=== PATIENT | male | born 1985 | race Asian ===

== ENCOUNTER 2017-04-12 12:24 | Observation (INO) | payer SELFPAY ==
[~2017-04-12] VITALS: Ht 172.7 cm; Wt 74.8 kg
[2017-04-12] MEDS ORDERED: KETOROLAC TROMETHAMINE 30 MG/ML VIAL IV STA (13:05)
[2017-04-12] MEDS ORDERED: XYLOCAINE 1%/SOD BICARB 20 ML VIAL INFIL STA ×2 (13:05→17:06)
[2017-04-12] MEDS ORDERED: AMPICILLIN/SULBACTAM SOD INJ 3,000 MG in SODIUM CHLORIDE 0.9% 100ML 100 ML IV STA (13:05)
[2017-04-12] MEDS ORDERED: SODIUM CHLORIDE 0.9% 1000ML 1,000 ML IV STA (13:05)
--- NOTE | 2017-04-12 13:14 | EMERGENCY ROOM VISIT NOTE ---
History First contact with patient: 12:56 Chief Complaint: HAND PAIN/INJURY Stated Complaint: L HAND INJURY History of Present Illness The patient is a 31 year old male who presents to the Emergency Room via private vehicle with complaints of "left hand injury". The patient states that beginning 2 days ago he noticed redness on the back of his left hand at the base of his left thumb. He states that then pain progressed, and now it is swollen to a point where he cannot bend or even move his left thumb. He notes pain rated as an 8/10 in this region. He notes that he is right-handed. He denies any trauma to the area, seeing anything bite his hand or injecting anything into the area. 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 He does not think he has had a tetanus shot in the past. He also feels warm, chills and notes excessive warmth of his left arm. Review of Systems A complete 10-point Review of Systems was discussed with the patient, with pertinent positives and negatives listed in the History of Present Illness. All remaining Review of Systems questions can be considered negative unless otherwise specified. Past Medical/Surgical History Medical Problems: (1) Cellulitis of left hand No pertinent at this time. Family History No pertinent. Social History Smoking Status: Never Smoker Patient lives locally, and performs [employer]. Current/Historical Medications No Active Prescriptions or Reported Meds Physical Exam Vital Signs Date Time Temp Pulse Resp B/P (MAP) Pulse Ox O2 Delivery O2 Flow Rate FiO2 04/12/17 17:50 87 18 132/75 99 Room Air 04/12/17 16:00 84 18 127/78 100 Room Air 04/12/17 14:12 90 18 130/76 99 Room Air 04/12/17 12:30 36.8 113 18 141/90 97 Room Air Physical Exam VITAL SIGNS - Vital signs and nursing notes were reviewed. He is afebrile, hypertensive, tachycardic at a rate of 113 bpm, and is saturating well on room air at 97%. GENERAL -31-year-old male appearing his stated age who is in no acute distress. Communicates well with provider and answers questions appropriately. SKIN - the left hand at the base of the left thumb reveals erythema that extends into the wrist, as well as into the thumb that is now severely edematous. There is an area at the flexor region at the base of the left first digit that appears to be coming to a head as if it is an abscess. There is no purulent drainage at this time. The hand and arm are excessively warm to the touch as compared to the right. HEAD - NC/AT.. NECK - Neck with FROM. Supple to palpation. No lymphadenopathy noted. No nuchal rigidity. No meningismus or signs of encephalitis. LUNGS - Chest wall symmetric without accessory muscle use, intercostals retractions, or central cyanosis. Normal vesicular breath sounds CTA B/L. No wheezes, rales, or rhonchi appreciated. CARDIAC - RRR with S1/S2. No murmur, rubs, or gallops appreciated. EXTREMITIES - No clubbing or peripheral cyanosis. No pretibial edema present. Skin changes as noted above. He is unable to flex extend or even move the left first digit of the hand. He is neurovascularly intact in this region. +5/5 strength noted in UE/LE bilaterally.Finger held in slight flexion at rest. Fusiform swelling. Tenderness along the flexor tendon sheath. Pain with passive extension of the digit. Medical Decision & Procedures ER Provider Diagnostic Interpretation: LEFT HAND MIN 3 VIEWS ROUTINE CLINICAL HISTORY: Left hand edema, erythema, warmth. No injury. COMPARISON: None. DISCUSSION: No fractures or dislocations are visualized. There are no erosive or destructive changes. There is diffuse soft tissue swelling. No foreign bodies are visualized. IMPRESSION: Diffuse soft tissue swelling. No bony abnormalities identified. Electronically signed by: Cesar Nguyen M.D. 04/12/2017 1:54 PM Dictated Date/Time: 04/12/2017 1:53 PM LEFT HAND ULTRASOUND CLINICAL HISTORY: Left hand edema and erythema. Concern for FTS with abscess. COMPARISON STUDY: Left hand 04/12/2017. FINDINGS: Increased echogenicity within the subcutaneous fat of the left hand with mild edema. No loculated fluid collections to suggest an abscess. No foreign bodies identified by sonographic technique. IMPRESSION: Increased echogenicity within the subcutaneous fat of the left hand with mild subcutaneous edema suggestive of a cellulitis. No loculated fluid collections to suggest an abscess. Electronically signed by: Carmelo Bhat M.D. 04/12/2017 4:39 PM Dictated Date/Time: 04/12/2017 4:38 PM Laboratory Results 04/12/17 13:20 Red Blood Count 5.25, Mean Corpuscular Volume 94.7, Mean Corpuscular Hemoglobin 29.7, Mean Corpuscular Hemoglobin Concent 31.4, Mean Platelet Volume 9.4, Neutrophils (%) (Auto) 85.0, Lymphocytes (%) (Auto) 8.3, Monocytes (%) (Auto) 5.1, Eosinophils (%) (Auto) 0.6, Basophils (%) (Auto) 0.1, Neutrophils # (Auto) 19.24, Lymphocytes # (Auto) 1.89, Monocytes # (Auto) 1.16, Eosinophils # (Auto) 0.13, Basophils # (Auto) 0.02 04/12/17 13:20 Test 04/12/17 13:20 04/12/17 13:27 04/12/17 15:21 White Blood Count 22.64 K/uL (4.8-10.8) Red Blood Count 5.25 M/uL (4.7-6.1) Hemoglobin 15.6 g/dL (14.0-18.0) Hematocrit 49.7 % (42-52) Mean Corpuscular Volume 94.7 fL (80-100) Mean Corpuscular Hemoglobin 29.7 pg (25-34) Mean Corpuscular Hemoglobin Concent 31.4 g/dl (32-36) Platelet Count 315 K/uL (130-400) Mean Platelet Volume 9.4 fL (7.4-10.4) Neutrophils (%) (Auto) 85.0 % Lymphocytes (%) (Auto) 8.3 % Monocytes (%) (Auto) 5.1 % Eosinophils (%) (Auto) 0.6 % Basophils (%) (Auto) 0.1 % Neutrophils # (Auto) 19.24 K/uL (1.4-6.5) Lymphocytes # (Auto) 1.89 K/uL (1.2-3.4) Monocytes # (Auto) 1.16 K/uL (0.11-0.59) Eosinophils # (Auto) 0.13 K/uL (0-0.5) Basophils # (Auto) 0.02 K/uL (0-0.2) RDW Standard Deviation 44.7 fL (36.4-46.3) RDW Coefficient of Variation 12.9 % (11.5-14.5) Immature Granulocyte % (Auto) 0.9 % Immature Granulocyte # (Auto) 0.20 K/uL (0.00-0.02) Erythrocyte Sedimentation Rate 45 mm/hr (0-14) Anion Gap 5.0 mmol/L (3-11) Est Creatinine Clear Calc Drug Dose 117.6 ml/min Estimated GFR () 132.7 Estimated GFR (Non- 114.5 BUN/Creatinine Ratio 16.6 (10-20) Calcium Level 9.3 mg/dl (8.5-10.1) C-Reactive Protein 3.53 mg/dl (0-0.29) Bedside Lactic Acid Venous 1.52 mmol/L (0.90-1.70) Lactic Acid Level 1.0 mmol/L (0.4-2.0) Medications Administered Medications (Trade) Dose Ordered Sig/Katey Route Start Time Stop Time Status Last Admin Dose Admin Lidocaine HCl (Buffered Lidocaine 1% Inj) 20 ml NOW STAT INFIL 04/12/17 13:05 04/12/17 13:09 DC 04/12/17 13:34 20 ML Sodium Chloride 1,000 ml @ 999 mls/hr Q1H1M STAT IV 04/12/17 13:05 04/12/17 14:05 DC 04/12/17 13:34 999 MLS/HR Ampicillin Sodium/ Sulbactam Sodium 3000 mg/Sodium Chloride 108 ml @ 200 mls/hr NOW STAT IV 04/12/17 13:05 04/12/17 13:37 DC 04/12/17 13:34 200 MLS/HR Ketorolac Tromethamine (Toradol Inj) 30 mg NOW STAT IV 04/12/17 13:05 04/12/17 13:09 DC 04/12/17 13:33 30 MG Diphtheria/ Pertussis/Tetanus Vacc (Adacel Inj) 0.5 ml ONCE ONCE IM. 04/12/17 15:15 04/12/17 15:16 DC 04/12/17 18:09 0.5 ML Vancomycin HCl 1000 mg/Sodium Chloride 270 ml @ 125 mls/hr NOW STAT IV 04/12/17 15:02 04/12/17 17:11 DC 04/12/17 15:37 125 MLS/HR Ondansetron HCl (Zofran Inj) 4 mg Q6H PRN IV 04/12/17 17:30 05/12/17 17:29 04/12/17 18:24 4 MG Dextrose/Sodium Chloride 1,000 ml @ 75 mls/hr [id number] IV 04/12/17 17:21 05/12/17 17:20 04/12/17 19:52 75 MLS/HR Morphine Sulfate (MoRPHine SULFATE INJ) 1mg for pain 1-5 2mg ... Q2H PRN IV 04/12/17 17:30 04/26/17 17:29 04/12/17 18:24 2 MG Medical Decision Patient was seen and evaluated as above. After obtaining a thorough history and physical examination IV access was initiated, and the above workup was performed. He presents to us today with diffuse swelling of the left hand, particularly around that the base of the left first digit. He denies any trauma. Although he is afebrile, he is tachycardic. Blood cultures and lactic acid will be drawn as well as baseline labs. He'll be empirically given Unasyn and vancomycin. On examination there is at baseline finger held in slight flexion at rest. Fusiform swelling. Tenderness along the flexor tendon sheath. Pain with passive extension of the digit. There is concern for flexor tenosynovitis of the left first digit. This is consistent with Kanavel's signs. X-ray was obtained to rule out foreign body secondary to his occupation. This was negative. Ultrasound reveals no fluid collection. He was given his tetanus shot. CBC reveals leukocytosis of 22.64. ESR high at 45. C-reactive protein high at 3.53. Potassium low at 3.4. I consulted orthopedics, who will evaluate, and admit the patient. Please refer to further documentation regarding his stay. In evaluation treatment this patient following differential diagnoses were entertained: Flexor tenosynovitis, abscess, osteomyelitis, among others. Impression Primary Impression: Cellulitis of left hand Additional Impression: Hypokalemia Departure Information Dispostion Admitted as an inpatient Condition GOOD Prescriptions No Active Prescriptions or Reported Meds Referrals No Doctor, Assigned (PCP) Patient Instructions [facility] Problem Qualifiers
--- NOTE | 2017-04-12 13:55 | DIAGNOSTIC IMAGING REPORT ---
LEFT HAND MIN 3 VIEWS ROUTINE CLINICAL HISTORY: Left hand edema, erythema, warmth. No injury. COMPARISON: None. DISCUSSION: No fractures or dislocations are visualized. There are no erosive or destructive changes. There is diffuse soft tissue swelling. No foreign bodies are visualized. IMPRESSION: Diffuse soft tissue swelling. No bony abnormalities identified. Electronically signed by: Cesar Nguyen M.D. 04/12/2017 1:54 PM Dictated Date/Time: 04/12/2017 1:53 PM
[2017-04-12 14:00] LABS: BASO % 0.1 %; BASO ABS # 0.02 K/uL (0-0.2); COMPLETE YES; EOS % 0.6 %; HEMATOCRIT 49.7 % (42-52); IG% 0.9 %; LYMPH % 8.3 %; LYMPH ABS # 1.89 K/uL (1.2-3.4); MEAN CELL VOLUME 94.7 fL (80-100); MEAN CORPUSCULAR HEMOGLOBIN 29.7 pg (25-34); MEAN CORPUSCULAR HGB CONC 31.4 g/dl (32-36); MEAN PLATELET VOLUME 9.4 fL (7.4-10.4); MONO % 5.1 %; PLATELET COUNT 315 K/uL (130-400); RED BLOOD COUNT 5.25 M/uL (4.7-6.1); WHITE BLOOD COUNT 22.64 K/uL (4.8-10.8)
[2017-04-12 14:29] LABS: BUN/CREATININE RATIO 16.6 (10-20); CALCIUM 9.3 mg/dl (8.5-10.1); CREATININE 0.88 mg/dl (0.60-1.40); POTASSIUM 3.4 mmol/L (3.5-5.1)
[2017-04-12] MEDS ORDERED: VANCOMYCIN INJ 1,000 MG in SODIUM CHLORIDE 0.9% 250ML 250 ML IV STA (15:02)
[2017-04-12] MEDS ORDERED: DIPHTHERIA/TETANUS/PERTUSSIS 0.5 ML SYR/VIAL IM. ONE (15:15)
--- NOTE | 2017-04-12 16:40 | DIAGNOSTIC IMAGING REPORT ---
LEFT HAND ULTRASOUND CLINICAL HISTORY: Left hand edema and erythema. Concern for FTS with abscess. COMPARISON STUDY: Left hand 04/12/2017. FINDINGS: Increased echogenicity within the subcutaneous fat of the left hand with mild edema. No loculated fluid collections to suggest an abscess. No foreign bodies identified by sonographic technique. IMPRESSION: Increased echogenicity within the subcutaneous fat of the left hand with mild subcutaneous edema suggestive of a cellulitis. No loculated fluid collections to suggest an abscess. Electronically signed by: Carmelo Bhat M.D. 04/12/2017 4:39 PM Dictated Date/Time: 04/12/2017 4:38 PM
--- NOTE | 2017-04-12 16:44 | History and Physical ---
History & Physical Date Apr 12, 2017. Chief Complaint Left hand pain and swelling History of Present Illness The patient is a 31 year old male with complaints of left hand pain and swelling for the past 2 days that has become progressively worse with assoc chills, sweats and essentially no mobility of the thumb. 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 Pt denies CP, SOB, Nausea, vomiting, diarrhea, parasthenia or drainage from the affected area. NPO since 9:00 AM today Past Medical/Surgical History none Additional History Hepatic Disease: No Endocrine Disorder: No Kidney Disease: No Hypertension: No Heart Disease: No Bleeding Tendencies: No Infectious Diseases: No Allergies Coded Allergies: Shrimp (Unverified Allergy, Unknown, itchy, 04/12/17) Home Medications No Active Prescriptions or Reported Meds Physical Examination Skin: + pertinent finding (Significant edema on dorsal and volar surface of left hand with purulent area noted over volar base of 1st MCP. Small amt of clear/bloody drainge. ) Eyes: normal inspection, EOMI Head: normocephalic Respiratory/Chest: lungs clear, normal breath sounds, no respiratory distress Cardiovascular: regular rate, rhythm, no murmur Abdomen / GI: normal bowel sounds, non tender Extremities: + pertinent finding (essentially completely limted ROM of Left thumb at MCP joint. Able to resist flex and extension at IP w/o referred pain to MCP. Probable flexor tendon involvement. Unable to make complete fist. Appropriate ROM of all other digits. N/V intact. See skin for remaining details.) Neurologic/Psych: no motor/sensory deficits, alert, oriented x 3 Diagnosis Left thumb/hand abscess/cellulitis ASA Classification: ASA Class I Plan of Treatment Patient is currently being evaluated by Dr. Rod Marie
[2017-04-12] MEDS ORDERED: LIDOCAINE HCL 1% 20 ML VIAL ONE (17:05)
[2017-04-12] MEDS ORDERED: ONDANSETRON INJ 2 MG/ML 2 ML VIAL IV PRN (17:30)
[2017-04-12] MEDS ORDERED: OXYCODONE/ACETAMINOPHEN 5-325 TAB PO PRN (17:30)
[2017-04-12] MEDS: MoRPHine SULFATE 2 MG/ML CARP IV PRN (18:24)
[2017-04-12] MEDS ORDERED: IV FLUIDS COMPLETED PRN (18:30)
[2017-04-12 19:17] LABS: C-REACTIVE PROTEIN 3.53 mg/dl (0-0.29)
--- NOTE | 2017-04-12 19:29 | Pharmacy Progress Note ---
Pharmacy Abx Initial Consult Date of Service Apr 12, 2017. Pharmacy Dosing Scope Date of Consult: 04/12/17 Consultation requested by: Farida Sanchez PA-C Pharmacy is consulted to initiate vancomycin IV dosing therapy, order appropriate labs and adjust drug dose/frequency. Subjective The patient is a 31 year old male admitted on . Objective Height (Feet): 5 Height (Inches): 8.00 Weight (Kilograms): 74.800 Vital Signs (Past 12Hrs) Vital Signs Past 12 Hours Date Time Temp Pulse Resp B/P (MAP) Pulse Ox O2 Delivery O2 Flow Rate FiO2 04/12/17 18:57 81 19 137/79 99 Room Air 04/12/17 17:50 87 18 132/75 99 Room Air 04/12/17 16:00 84 18 127/78 100 Room Air 04/12/17 14:12 90 18 130/76 99 Room Air 04/12/17 12:30 36.8 113 18 141/90 97 Room Air Lab Results (24Hrs) Laboratory Tests (24 Hours) Test 04/12/17 13:20 04/12/17 15:21 C-Reactive Protein 3.53 mg/dl (0-0.29) H White Blood Count 22.64 K/uL (4.8-10.8) H Red Blood Count 5.25 M/uL (4.7-6.1) Hemoglobin 15.6 g/dL (14.0-18.0) Hematocrit 49.7 % (42-52) Mean Corpuscular Volume 94.7 fL (80-100) Mean Corpuscular Hemoglobin 29.7 pg (25-34) Mean Corpuscular Hemoglobin Concent 31.4 g/dl (32-36) L Platelet Count 315 K/uL (130-400) Mean Platelet Volume 9.4 fL (7.4-10.4) Neutrophils (%) (Auto) 85.0 % Lymphocytes (%) (Auto) 8.3 % Monocytes (%) (Auto) 5.1 % Eosinophils (%) (Auto) 0.6 % Basophils (%) (Auto) 0.1 % Neutrophils # (Auto) 19.24 K/uL (1.4-6.5) H Lymphocytes # (Auto) 1.89 K/uL (1.2-3.4) Monocytes # (Auto) 1.16 K/uL (0.11-0.59) H Eosinophils # (Auto) 0.13 K/uL (0-0.5) Basophils # (Auto) 0.02 K/uL (0-0.2) Lactic Acid Level 1.0 mmol/L (0.4-2.0) Micro Results Date/Time Source Procedure Growth Status 04/12/17 13:30 Blood Blood Culture Pending Received 04/12/17 13:20 Blood Blood Culture Pending Received 04/12/17 17:45 Abscess Finger , Left 1st Gram Stain - Final Resulted 04/12/17 17:45 Abscess Finger , Left 1st Wound Culture Pending Resulted 04/12/17 17:45 Drainage-Deep Thumb , Left Gram Stain Pending Received 04/12/17 17:45 Drainage-Deep Thumb , Left Wound Culture Pending Received Risk Factors for Resistance * no risk factors Assessment & Plan Assessment 31 year old male with no appreciable medical history admitted with left hand cellulitis around the thumb. 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 He can no longer move his thumb. Patient underwent and I&D this afternoon with Dr Marie and Gram stain shows few Gram positive organisms. Plan vancomycin for treatment of left hand cellulitis Vancomycin IV * Loading dose: 1000 mg (13.3 mg/kg) * Maintenance dose: 1250 mg IV (16.7 mg/kg) every 8 hours (population pharmacokinetics suggest a half-life of 7.7 hours) * Goal trough level for cellulitis : 10 to 15 mcg/mL * Trough ordered for 04/14/17 prior to 0600 dose Pharmacy will continue to follow and will adjust dose/frequency as necessary. Thank you.
[2017-04-12 19:30] VITALS: BP 146/91; PULSE 102; TEMP 37.8; O2SAT 97; Ht 172.7 cm; Wt 74.8 kg
--- NOTE | 2017-04-12 19:41 | ORTHOPEDIC CONSULTATION ---
DATE OF CONSULTATION: 04/12/2017 The patient has a painful left thumb which began spontaneously 2 days ago. A coutierier was utilized. He thinks he might have been bitten, but this is just a guess and has no certainty around it. Has progressive pain, swelling and redness involving the left thumb. Further information regarding the patient's history and medications, etc. can be gathered from MILAGRO Ochoa's history and physical from today as well. On exam of the thumb, there is swelling of the thenar area with redness mainly on the volar aspect of the thenar eminence. There is a little bit of redness over the dorsum of the proximal second ray. There is no streaking. He has tattoos on his arm. Sensation is intact. Capillary refill is less than 2 seconds. There is a small area of whitish discoloration towards between the proximal and next proximal thumb MP crease located more towards the ulnar side of the thumb and the radial side. There is no notable drainage. This area is the most exquisitely tender, here and around the base of the volar aspect of the MP joint. The thenar eminence appears to be relatively soft. There is no significant firmness within the first webspace. The MCP, CMC and IP joints are nontender and not swollen on the dorsal aspects. He can extend and flex the thumb at the IP joint without significant pain. He can pinch to the index finger. He has good passive movement of the thumb IP joint without significant pain. There is no tenderness over the distal phalanx. There is some tenderness over the proximal phalanx, but most exquisite tenderness is located over the MP joint. There is a small open wound on the ulnar side at the aforementioned location, but no active drainage. His otherwise median, radial and ulnar motor and sensory functions are intact. Ultrasound of the hand shows soft tissue swelling, but no evidence of abscess. X-ray of the hand shows no fracture or osteomyelitis. There is no dislocation. There is no subcutaneous emphysema or foreign body. Positive soft tissue swelling. PROCEDURE: Verbal consent was obtained. He denies allergy to iodine. Lobster is okay, just small shrimp. The hand was prepped with Betadine. A sterile field was created. A forearm tourniquet was applied at 225 mmHg for about 5 minutes. Prior to that, superficial radial nerve and median nerve block were done with approximately 8 mL of 1% lidocaine plain. An additional 4 mL of 1% plain lidocaine was injected around the MP joint subcutaneous tissues for local anesthesia. The tourniquet was inflated. An oblique incision was made somewhat paralleling the course of the prior small break in the skin. This went from proximal ulnar to distal radial between the 2 thumb flexion creases. I incised only the skin in order to protect the superficial neurovascular structures. I then used a blunt forcep to dissect and in both the volar radial and dorsal ulnar direction 1-2 mL pockets of latosha purulence was noted. A culture was obtained; then was thoroughly irrigated with 100 mL of sterile saline. Some loculated pus was removed. This appeared to be superficial in the subcutaneous tissues and did not appear to go deep. I squeezed into the thenar eminence of the palm and first webspace and could express no purulence. A moistened gauze sponge was packed into the wound and a bulky sterile hand dressing was applied. IMPRESSION: Left hand cellulitis with subcutaneous abscess involving the volar aspect of the metacarpophalangeal joint area of the left thumb. PLAN: We will go ahead and open up the small area which looks like there may be an evolving abscess. This is the most exquisite area of tenderness. Upon doing so, we did identify two small areas of purulence which were expressed, irrigation and packing was performed. The patient will be admitted to the hospital. His white blood cell count is approximately 20,000. This will be rechecked in the morning. He has been given Zosyn and vancomycin in the ER and we will continue Ancef pending culture ID. There is a possibility that this could be MRSA. I do not think that this is a deep space infection, does not appear to have evidence of flexor tenosynovitis or septic arthritis. He will be admitted to the hospital. We will make him n.p.o. just in case he does not improve. We will check him in the morning to see how his hand is doing. He will continue on IV antibiotics and will go ahead and keep the hand elevated. He will have pain medication as well. He does not need DVT prophylaxis.
[2017-04-12] MEDS ORDERED: VANCOMYCIN CONSULT ACTIVE PRN (19:45)
[2017-04-12] MEDS: D5W AND 1/2NSS 1,000 ML IV SCH (19:52)
[2017-04-12] MEDS: DOCUSATE SODIUM 100 MG CAP PO SCH (21:00)
[2017-04-12] MEDS: VANCOMYCIN INJ 1,250 MG in SODIUM CHLORIDE 0.9% 250ML 250 ML IV SCH (21:54)
[2017-04-12] MEDS ORDERED: CEFAZOLIN IV 2,000 MG in DEXTROSE 5% 50ML 50 ML IV SCH (22:00)
[2017-04-12 22:50] VITALS: BP 136/87; PULSE 113; TEMP 37.5; O2SAT 99
[2017-04-13] MEDS: VANCOMYCIN INJ 1,250 MG in SODIUM CHLORIDE 0.9% 250ML 250 ML IV SCH ×3 (05:33→21:32)
[2017-04-13] MEDS: D5W AND 1/2NSS 1,000 ML IV SCH ×2 (05:33→20:26)
[2017-04-13 07:09] VITALS: BP 110/68; PULSE 83; TEMP 37.5; O2SAT 96
[2017-04-13 07:12] LABS: MEAN CELL VOLUME 92.4 fL (80-100); MEAN CORPUSCULAR HEMOGLOBIN 31.2 pg (25-34); MEAN CORPUSCULAR HGB CONC 33.8 g/dl (32-36); MEAN PLATELET VOLUME 9.3 fL (7.4-10.4); PLATELET COUNT 249 K/uL (130-400); RED BLOOD COUNT 4.33 M/uL (4.7-6.1); WHITE BLOOD COUNT 19.46 K/uL (4.8-10.8)
[2017-04-13 07:48] LABS: CREATININE 0.83 mg/dl (0.60-1.40)
[2017-04-13 08:00] VITALS: O2SAT 96
[2017-04-13] MEDS: DOCUSATE SODIUM 100 MG CAP PO SCH ×2 (08:48→20:27)
--- NOTE | 2017-04-13 09:24 | Progress Note ---
Orthopedic SOAP Note Subjective Date of Service: Apr 13, 2017. Reports: feeling well (reports significant improving regarding pain, swelling, and stiffness in the left hand. states that he has painless active motion and is pleased with progress), pain controlled w PO medications, Denies: complaints , chest pain, SOB, nausea / vomiting, light headedness, calf pain, using [employer] Problem List Medical Problems: (1) Hypokalemia Status: Acute Objective calves soft nontender, N/V intact, capillary refill less than 2 sec., dressing C /D/I, A&O x3, toes mobile pain is able to actively move his thumb and index finger on the left hand without pain, states doing this last evening would have created significant pain and that is not the case at this point. also has painless motion at the wrist, which was also affected. I keep his dressing/packing in place until evaluated by Dr. Marie to determine if packing can be removed. Date Time Temp Pulse Resp B/P (MAP) Pulse Ox O2 Delivery O2 Flow Rate FiO2 04/13/17 07:09 37.5 83 18 110/68 (82) 96 Room Air 04/12/17 23:35 Room Air 04/12/17 22:50 37.5 113 20 136/87 (103) 99 Room Air 04/12/17 19:30 37.8 102 16 146/91 97 Room Air 04/12/17 18:57 81 19 137/79 99 Room Air 04/12/17 17:50 87 18 132/75 99 Room Air 04/12/17 16:00 84 18 127/78 100 Room Air 04/12/17 14:12 90 18 130/76 99 Room Air 04/12/17 12:30 36.8 113 18 141/90 97 Room Air Laboratory Results 24 Hours: Test 04/12/17 13:20 04/13/17 06:37 White Blood Count 22.64 K/uL Red Blood Count 5.25 M/uL Hemoglobin 15.6 g/dL 13.5 g/dL Hematocrit 49.7 % 40.0 % Mean Corpuscular Volume 94.7 fL Mean Corpuscular Hemoglobin 29.7 pg Mean Corpuscular Hemoglobin Concent 31.4 g/dl Platelet Count 315 K/uL Mean Platelet Volume 9.4 fL Neutrophils (%) (Auto) 85.0 % Lymphocytes (%) (Auto) 8.3 % Monocytes (%) (Auto) 5.1 % Eosinophils (%) (Auto) 0.6 % Basophils (%) (Auto) 0.1 % Neutrophils # (Auto) 19.24 K/uL Lymphocytes # (Auto) 1.89 K/uL Monocytes # (Auto) 1.16 K/uL Eosinophils # (Auto) 0.13 K/uL Basophils # (Auto) 0.02 K/uL Assessment Left hand abscess/cellulitis Plan continue to monitor accordingly pain control with prescribed medications ice/elevate left UE continue IV ABX slight decrease in white count cultures pending up ad bairon, ambulates in room will be evaluated by Dr. Marie today and determine if packing can be removed no other questions or concerns pleased with his progress over the past 12 hours further questions please notify [facility]
[2017-04-13] MEDS: MoRPHine SULFATE 2 MG/ML CARP IV PRN (12:23)
--- NOTE | 2017-04-13 12:48 | PROGRESS NOTE ---
DATE: 04/13/2017 He reports improvement. Less pain. No numbness or tingling. He is afebrile. His vital signs are stable. White count is diminished to 19,000 today. Cultures are growing out Staph aureus. Blood cultures negative to date. The dressing is removed along with packing. He still has erythema essentially over the same areas previously, volar aspect of the proximal thumb, thenar eminence, mainly volarly, slightly dorsally. He has intact sensation and capillary refill to the thumb. There is no purulent drainage. He can actively flex his IP and MP joint without much difficulty. There is not pain with passive extension of the IP joint. He has slight soreness along the volar aspect of the proximal phalanx and some soreness in the first webspace. He can flex his fingers about 50% limited by swelling. There is no tenderness of the carpal tunnel, palm of the hand, hypothenar eminence or metacarpophalangeal joints. The interphalangeal, metacarpophalangeal and carpometacarpal joints of the left thumb are benign appearing dorsally. There is no pain in the wrist. IMPRESSION: Subcutaneous abscess of the left thumb. PLAN: He is improved overall. I have some concern about a deep space or webspace infection. There is a fair amount of persistent swelling in that area. Overall, things have improved. He does have some residual tenderness, but things again are much improved. I do not think that he has any evidence of spread of the infection around the hand into the carpal tunnel or any of the joints of the wrist or thumb. He does not have clinical evidence of flexor tenosynovitis. We will give him a diet to eat today and make him n.p.o. after midnight. He will continue on vancomycin. We will follow up on the cultures. The hand is redressed and packed. Continue elevation. Obtain an MRI to further evaluate. He is aware of the plan. There is a possible need for surgery tomorrow if he does have a deep space abscess.
[2017-04-13 15:00] VITALS: BP 128/84; PULSE 100; TEMP 36.9; O2SAT 97
[2017-04-13] MEDS ORDERED: GADAVIST IV PRN (16:30)
--- NOTE | 2017-04-13 16:48 | DIAGNOSTIC IMAGING REPORT ---
MRI OF THE LEFT HAND COMBO CLINICAL HISTORY: Hand infection. COMPARISON STUDY: Radiographs of left hand and ultrasound of the left hand dated 04/12/2017. TECHNIQUE: MRI of the left hand is performed using various T1 and T2-weighted sequences in the axial, sagittal, and coronal planes. Contrast-enhanced sequences are acquired from the IV administration of 7 cc of Gadavist. The examination is degraded by motion artifact. FINDINGS: Normal marrow signal intensity is preserved throughout the visualized bony structures. There is no evidence of marrow replacement process. The joint spaces of the hand appear preserved. A cutaneous defect is suggested between the first and second fingers, possibly representing wound/laceration. There is surrounding soft tissue edema and patchy enhancement. Milder soft tissue edema is seen throughout the remainder of the hand suggesting cellulitis. No organized fluid collection is seen to indicate abscess. The visualized flexor and extensor tendons appear intact. The regional musculature is normal in bulk and signal intensity. IMPRESSION: 1. No bony abnormality is seen in the left hand. 2. A cutaneous defect is suggested between the first and second fingers, likely representing a wound/laceration. Clinical correlation will be required. 3. Milder diffuse soft tissue swelling throughout the remainder of the hand suggests cellulitis. There is no organized fluid collection seen to indicate abscess. Electronically signed by: Antwan Pan M.D. 04/13/2017 4:47 PM Dictated Date/Time: 04/13/2017 4:39 PM
[2017-04-13 22:50] VITALS: BP 126/88; PULSE 90; TEMP 37.1; O2SAT 98
[2017-04-14] MEDS ORDERED: VANCOMYCIN TROUGH SCH (05:30)
[2017-04-14] MEDS: VANCOMYCIN INJ 1,250 MG in SODIUM CHLORIDE 0.9% 250ML 250 ML IV SCH (05:43)
[2017-04-14 06:04] LABS: BASO % 0.4 %; BASO ABS # 0.05 K/uL (0-0.2); COMPLETE YES; EOS % 2.7 %; IG% 1.5 %; LYMPH % 15.7 %; LYMPH ABS # 1.89 K/uL (1.2-3.4); MEAN CELL VOLUME 92.9 fL (80-100); MEAN CORPUSCULAR HEMOGLOBIN 31.4 pg (25-34); MEAN CORPUSCULAR HGB CONC 33.8 g/dl (32-36); MEAN PLATELET VOLUME 9.1 fL (7.4-10.4); MONO % 9.1 %; NEUT % 70.6 %; PLATELET COUNT 260 K/uL (130-400); RED BLOOD COUNT 4.52 M/uL (4.7-6.1); WHITE BLOOD COUNT 12.01 K/uL (4.8-10.8)
[2017-04-14 06:38] LABS: CREATININE 0.76 mg/dl (0.60-1.40)
[2017-04-14 07:00] VITALS: BP 119/75; PULSE 74; TEMP 36.7; O2SAT 97
[2017-04-14] MEDS ORDERED: HYDR-5688 PO (07:53)
[2017-04-14] MEDS ORDERED: CLC100 PO (07:53)
[2017-04-14] MEDS ORDERED: SULF800T23 PO (07:53)
--- NOTE | 2017-04-14 08:07 | Discharge Instructions ---
Discharge Instructions Date of Service Apr 14, 2017. Admission Reason for Admission: Cellulitis Of Left Hand Discharge Discharge Diagnosis / Problem: Cellulitis of left hand Discharge Goals Goal(s): Decrease discomfort, Improve function, Increase independence Activity Recommendations Activity Limitations: per Instructions/Follow-up section Shower/Bathe: no limitations Weightbearing Status: Left non-weightbearing (left hand) . Instructions / Follow-Up Instructions / Follow-Up DIET: * Resume previous diet. MEDICATIONS: * Please take your prescriptions as instructed at your pre-op appointment and/ or see medication discharge instructions listed above. * If concerns develop, call your physician's office at . SPECIAL CARE INSTRUCTIONS: * Ice to left hand as needed for pain and swelling * Elevate left hand as needed for pain and swelling. * Keep dressing clean, dry, intact. Keep covered at all times. Okay to remove dressings and shower. Also dressings twice daily for soaking left hand and Betadine/water mixture. * Soak hand in Betadine and water mixture twice daily. Redress after soaking. * Move her fingers frequently to prevent stiffness. Okay to remove wrist. No pushing pulling or lifting left hand. * Report to emergency room with any increased pain and swelling, drainage, fevers, or chills. * Your surgical extremity may be discolored due to prepping agents used on the skin. A bluish-green tint is a normal variant and should not cause alarm. Call your doctor at [phone] if: * Temperature above 101 degrees * Pain not relieved by pain medicine ordered * There is increased drainage or redness from any incision * You have any unanswered questions, problems or concerns. FOLLOW UP VISIT: * If not already scheduled, please call the office at to schedule a follow-up appointment. * Follow up at [facility] on Monday04/18/17 at 04/18/17 at 1:00 p.m. Current Hospital Diet Patient's current hospital diet: Regular Diet Discharge Diet Recommended Diet: Regular Diet Pending Studies Studies pending at discharge: no Medical Emergencies . Who to Call and When: Medical Emergencies: If at any time you feel your situation is an emergency, please call 911 immediately. . Non-Emergent Contact Non-Emergency issues call your: Surgeon Call Non-Emergent contact if: temperature is above 101, your pain is not controlled, your pain is worsening, your pain is concerning you, wound has increased drainage, wound has increased redness, wound has increased pain, you have any medication questions . "Provider Documentation" section prepared by Farida Sanchez. . VTE Core Measure Inpt VTE Proph given/why not?: Treatment not indicated [place] Drug Monitoring Program Search Results: patient reviewed within database, no issues identified
--- NOTE | 2017-04-14 08:12 | Orthopedic Progress Note ---
Orthopedic Progress Note Date of Service Apr 14, 2017. Subjective Reports: feeling well, pain controlled w PO medications, Denies: complaints, chest pain, SOB, nausea / vomiting, light headedness, calf pain Additional Notes: States feeling much better Objective calves soft nontender, N/V intact, capillary refill less than 2 sec., incision C /D/I, A&O x3 Dressing with mild bloody drainage. No active draining from wound. Less swelling of his left hand today. Still some dorsal tenderness palpation. No purulence able to be expressed from wound today. Tolerates range of motion of left thumb IP joint, MCP joint, and left wrist. Distal vascular is intact. Range of motion improved and left thumb and hand. Date Time Temp Pulse Resp B/P (MAP) Pulse Ox O2 Delivery O2 Flow Rate FiO2 04/14/17 07:00 36.7 74 16 119/75 (90) 97 Room Air 04/13/17 22:50 37.1 90 16 126/88 (101) 98 Room Air 04/13/17 19:20 Room Air 04/13/17 17:00 Room Air 04/13/17 15:00 36.9 100 20 128/84 (99) 97 Room Air Laboratory Results 24 Hours: Test 04/14/17 05:41 White Blood Count 12.01 K/uL Red Blood Count 4.52 M/uL Hemoglobin 14.2 g/dL Hematocrit 42.0 % Mean Corpuscular Volume 92.9 fL Mean Corpuscular Hemoglobin 31.4 pg Mean Corpuscular Hemoglobin Concent 33.8 g/dl Platelet Count 260 K/uL Mean Platelet Volume 9.1 fL Neutrophils (%) (Auto) 70.6 % Lymphocytes (%) (Auto) 15.7 % Monocytes (%) (Auto) 9.1 % Eosinophils (%) (Auto) 2.7 % Basophils (%) (Auto) 0.4 % Neutrophils # (Auto) 8.48 K/uL Lymphocytes # (Auto) 1.89 K/uL Monocytes # (Auto) 1.09 K/uL Eosinophils # (Auto) 0.32 K/uL Basophils # (Auto) 0.05 K/uL Additional Notes: Culture results of abscess left thumb: MRSA MRI OF THE LEFT HAND COMBO CLINICAL HISTORY: Hand infection. COMPARISON STUDY: Radiographs of left hand and ultrasound of the left hand dated 04/12/2017. TECHNIQUE: MRI of the left hand is performed using various T1 and T2-weighted sequences in the axial, sagittal, and coronal planes. Contrast-enhanced sequences are acquired from the IV administration of 7 cc of Gadavist. The examination is degraded by motion artifact. FINDINGS: Normal marrow signal intensity is preserved throughout the visualized bony structures. There is no evidence of marrow replacement process. The joint spaces of the hand appear preserved. A cutaneous defect is suggested between the first and second fingers, possibly representing wound/laceration. There is surrounding soft tissue edema and patchy enhancement. Milder soft tissue edema is seen throughout the remainder of the hand suggesting cellulitis. No organized fluid collection is seen to indicate abscess. The visualized flexor and extensor tendons appear intact. The regional musculature is normal in bulk and signal intensity. IMPRESSION: 1. No bony abnormality is seen in the left hand. 2. A cutaneous defect is suggested between the first and second fingers, likely representing a wound/laceration. Clinical correlation will be required. 3. Milder diffuse soft tissue swelling throughout the remainder of the hand suggests cellulitis. There is no organized fluid collection seen to indicate abscess. Assessment & Plan Assessment: Left hand abscess/cellulitis Plan: Dressings changed left hand today, Betadine diluted soak performed at bedside. pain control with prescribed medications Continue daily dressing changes and PRN. ice/elevate left UE Culture results noted - MRSA up ad bairon, ambulates in room Plan for discharge to home today on oral antibiotics Patient seen and evaluated by Dr. Marie, no plan for OR today Patient understands and agrees with plan. All questions answered. Discharge Planning Discharge Planning: home Pain Management: Rodger
--- NOTE | 2017-04-14 08:20 | Discharge Summary ---
Discharge Summary Date of Service Apr 14, 2017. Discharge Summary Admission Date: Apr 12, 2017 at 18:04 Discharge Date: Apr 14, 2017 Discharge Disposition: Home Principal Diagnosis: Left hand abscess/cellulitis Procedures: I&D left hand abscess in the ED Pending Studies/Follow-Up: Follow-up with [facility] on 04/18/2017 at 1:00 p.m. Medication Reconciliation New Medications: Hydrocodone/Acetaminophen 5MG/325MG (Kimball 5MG/325MG) Tab 1-2 TABLET PO Q4H PRN for Pain, #30 TAB Sulfa/Trimethoprim (Bactrim Ds 800MG/160MG) Tab 1 TAB PO BID for 14 Days, #28 TAB Docusate Sodium (Docusate Sodium) 100 Mg Cap 100 MG PO BID for 30 Days, #60 CAP Hospital Course Patient is a pleasant 31-year-old male who presented to the emergency room on with complaints of left hand swelling pain and redness. Denies any known injury. States that the swelling and pain started the day before. It worsened throughout the day which brought him to the ED. He had x-rays which showed no bony abnormality or foreign body. He had an ultrasound which showed no evidence of abscess or collection of fluid. He was seen and evaluated that time by Dr. Marie and regional block was performed. He then underwent an incision and drainage of the left thumb abscess in the ED. Cultures were obtained. He was admitted for IV antibiotics. He was made nothing by mouth after midnight dressing was packed and he was instructed to elevate for swelling. Following day he was evaluated and swelling had improved to continue to have pain around his left thumb. He was given a regular diet and an MRI was ordered to evaluate for underlying deep space abscess. His IV vancomycin was continued. Cultures continued to be pended and were positive for Staphylococcus aureus. On admission date to his dressings were changed again. His swelling pain and redness had significantly improved. His range of motion had improved. His MRI was negative for abscess. His cultures were resulted with MRSA. He was placed in contact isolation. He was taught Betadine soak which was performed at his bedside today. Sensitivities were resulted and MRSA was sensitive to Bactrim. It was determined that he would not require surgical intervention at this time. Dressings were reapplied by nursing. Was decided that he would be able to be discharged home today on oral Bactrim DS twice a day. He was instructed to take Colace for stool softener while on pain medication. Kimball was prescribed for pain control. The [place] PDMP was checked with no issues identified. He was safe for discharge to his home. He was discharged to his home on 04/14/2017 stable condition. Discharge and follow-up instructions were provided. Total time spent on discharge = This includes examination of the patient, discharge planning, medication reconciliation, and communication with other providers. Discharge Instructions Discharge Instructions Date of Service Apr 14, 2017. Admission Reason for Admission: Cellulitis Of Left Hand Discharge Discharge Diagnosis / Problem: Cellulitis of left hand Discharge Goals Goal(s): Decrease discomfort, Improve function, Increase independence Activity Recommendations Activity Limitations: per Instructions/Follow-up section Shower/Bathe: no limitations Weightbearing Status: Left non-weightbearing (left hand) . Instructions / Follow-Up Instructions / Follow-Up DIET: * Resume previous diet. MEDICATIONS: * Please take your prescriptions as instructed at your pre-op appointment and/ or see medication discharge instructions listed above. * If concerns develop, call your physician's office at . SPECIAL CARE INSTRUCTIONS: * Ice to left hand as needed for pain and swelling * Elevate left hand as needed for pain and swelling. * Keep dressing clean, dry, intact. Keep covered at all times. Okay to remove dressings and shower. Also dressings twice daily for soaking left hand and Betadine/water mixture. * Soak hand in Betadine and water mixture twice daily. Redress after soaking. * Move her fingers frequently to prevent stiffness. Okay to remove wrist. No pushing pulling or lifting left hand. * Report to emergency room with any increased pain and swelling, drainage, fevers, or chills. * Your surgical extremity may be discolored due to prepping agents used on the skin. A bluish-green tint is a normal variant and should not cause alarm. Call your doctor at [phone] if: * Temperature above 101 degrees * Pain not relieved by pain medicine ordered * There is increased drainage or redness from any incision * You have any unanswered questions, problems or concerns. FOLLOW UP VISIT: * If not already scheduled, please call the office at to schedule a follow-up appointment. * Follow up at [facility] on Monday04/18/17 at 04/18/17 at 1:00 p.m. Current Hospital Diet Patient's current hospital diet: Regular Diet Discharge Diet Recommended Diet: Regular Diet Pending Studies Studies pending at discharge: no Medical Emergencies . Who to Call and When: Medical Emergencies: If at any time you feel your situation is an emergency, please call 911 immediately. . Non-Emergent Contact Non-Emergency issues call your: Surgeon Call Non-Emergent contact if: temperature is above 101, your pain is not controlled, your pain is worsening, your pain is concerning you, wound has increased drainage, wound has increased redness, wound has increased pain, you have any medication questions . "Provider Documentation" section prepared by Farida Sanchez. . VTE Core Measure Inpt VTE Proph given/why not?: Treatment not indicated [place] Drug Monitoring Program Search Results: patient reviewed within database, no issues identified
[2017-04-14] MEDS: DOCUSATE SODIUM 100 MG CAP PO SCH (08:28)
[2017-04-14 08:29] VITALS: BP 119/75; PULSE 74; TEMP 36.7; O2SAT 97
--- NOTE | 2017-04-14 08:47 | PROGRESS NOTE ---
DATE: 04/14/2017 SUBJECTIVE: The hand is better. He has no fever. His white count is diminished to 12. Cultures have grown out MRSA, sensitive to Bactrim. He does not have any evidence of flexor tenosynovitis. Overall, the swelling, redness and pain have diminished. There is no significant tenderness today. He has full movement of the wrist and forearm rotation. He can move his thumb without difficulty. He can flex his fingers about tow-thirds of the way without difficulty and extend them all the way. Median, radial and ulnar motor and sensory functions are intact. There remained swelling in the thenar area and first webspace, decreased compared to yesterday, but no significant tenderness and no drainage. There is no evidence of septic arthritis. No purulent drainage is noted. He will be discharged home today and will follow up on Monday or Monday of next week. He will be on stool softener, pain medication and Bactrim-DS 1 p.o. b.i.d. If anything worsens over the weekend in terms of chills, sweats, fevers or worsening problems, to come back to the Emergency Room. He will elevate the hand, work on range of motion, limit use and will do a Betadine lavage soaks once or twice a day and keep covered with a dressing.
[2017-04-14] MEDS: D5W AND 1/2NSS 1,000 ML IV SCH (09:21)
== END 2017-04-14 09:38 | disposition home or self-care (01) ==
LOC: C.EDB 12:27 → C.MSN 18:04 → ENRESERV 18:31 → EDBEDREQ 18:33
PROVIDERS: ADMIT Physical Medicine & Rehabilitation Sports Medicine; ATTEND Physical Medicine & Rehabilitation Sports Medicine
DX: L03.113 Cellulitis of right upper limb (principal); L02.511 Cutaneous abscess of right hand; B95.62 Methicillin resistant Staphylococcus aureus infection as the cause of diseases classified elsewhere; E87.6 Hypokalemia

== ENCOUNTER 2017-08-28 18:33 | Emergency (ER) | payer SELFPAY ==
[~2017-08-28] VITALS: Ht 170.2 cm; Wt 76.4 kg
[~2017-08-28 18:33] MED LIST: CLC100 PO; HYDR-5688 PO
[2017-08-28 18:37] VITALS: Ht 170.2 cm; Wt 76.4 kg
[2017-08-28] MEDS ORDERED: ACETAMINOPHEN 500 MG TAB PO STA (18:47)
[2017-08-28] MEDS ORDERED: SODIUM CHLORIDE 0.9% 1000ML 2,000 ML IV STA (18:47)
[2017-08-28 19:37] LABS: BASO % 0.3 %; BASO ABS # 0.04 K/uL (0-0.2); EOS % 1.8 %; EOS ABS # 0.24 K/uL (0-0.5); HEMATOCRIT 48.2 % (42-52); HEMOGLOBIN 16.2 g/dL (14.0-18.0); IG# 0.15 K/uL (0.00-0.02); LYMPH % 4.2 %; LYMPH ABS # 0.55 K/uL (1.2-3.4); MEAN CELL VOLUME 93.2 fL (80-100); MEAN CORPUSCULAR HEMOGLOBIN 31.3 pg (25-34); MEAN CORPUSCULAR HGB CONC 33.6 g/dl (32-36); MEAN PLATELET VOLUME 9.4 fL (7.4-10.4); MONO % 7.8 %; MONO ABS # 1.02 K/uL (0.11-0.59); NEUT % 84.7 %; NEUT ABS # 11.02 K/uL (1.4-6.5); NUCLEATED RED BLOOD CELL ABS 0.06 K/uL (0-0); PLATELET COUNT 241 K/uL (130-400); RED CELL DISTRIBUTION WIDTH CV 13.1 % (11.5-14.5); RED CELL DISTRIBUTION WIDTH SD 44.9 fL (36.4-46.3); WHITE BLOOD COUNT 13.02 K/uL (4.8-10.8)
[2017-08-28 20:01] LABS: CALCIUM 8.6 mg/dl (8.5-10.1); CREATININE 1.2 mg/dl (0.60-1.40); POTASSIUM 3.5 mmol/L (3.5-5.1)
[2017-08-28 20:04] LABS: INFLUENZA B ANTIGEN Neg for Influ B (NEG)
--- NOTE | 2017-08-28 20:14 | DIAGNOSTIC IMAGING REPORT ---
SINGLE VIEW CHEST CLINICAL HISTORY: Cough. FINDINGS: An AP, portable, upright chest radiograph is obtained. No prior studies are available for comparison at the time of dictation. The examination is degraded by portable technique and patient rotation. The cardiomediastinal silhouette is unremarkable. The lungs and pleural spaces are clear. No pneumothorax is seen. The bony thorax is grossly intact. IMPRESSION: No active disease in the chest. Electronically signed by: Antwan Pan M.D. 08/28/2017 8:12 PM Dictated Date/Time: 08/28/2017 8:12 PM
[2017-08-28] MEDS ORDERED: OSELTAMIVIR PHOSPHATE 75 MG CAP PO STA (20:23)
[2017-08-28] MEDS ORDERED: OSEL75CA12 PO (20:25)
[2017-08-28 21:01] VITALS: BP 119/68; PULSE 124; TEMP 38; O2SAT 98
--- NOTE | 2017-08-28 21:54 | EMERGENCY ROOM VISIT NOTE ---
History Report prepared by Julitaibaldair: Christ Holly Under the Supervision of: Dr. Oneil Hodgson D.O. First contact with patient: 18:40 Chief Complaint: FLU LIKE SX Stated Complaint: FLU LIKE SYMPTOMS History of Present Illness The patient is a 31 year old male who presents to the Emergency Room with complaints of a constant fever that began yesterday. The patient states that he had a sorethroat followed by a nonproductive cough that started yesterday. He reports that starting last night he has been experiencing chills. The patient states that he also has been experiencing rhinorrhea and a headache. He denies ear aches, change in vision, chest pain, shortness of breath, nausea, vomiting, diarrhea, pain with urination, and melena. The patient denies any allergies or medical problems. He reports that his shots are up to date. Source of History: patient Onset: yesterday Position: other (global) Quality: other (global) Timing: constant Associated Symptoms: + fevers, + chills, + headache, + sorethroat, + cough, No chest pain, No SOB, No nausea, No vomiting, No melena, No diarrhea, No urinary symptoms Review of Systems See HPI for pertinent positives & negatives. A total of 10 systems reviewed and were otherwise negative. Past Medical & Surgical Medical Problems: (1) Cellulitis of left hand Family History Patient reports no known family medical history. Social History Smoking Status: Never Smoker Occupation Status: employed Current/Historical Medications Scheduled Oseltamivir (Tamiflu), 75 MG PO BID Allergies Coded Allergies: Shrimp (Unverified Allergy, Unknown, itchy, 08/28/17) Physical Exam Vital Signs Date Time Temp Pulse Resp B/P (MAP) Pulse Ox O2 Delivery O2 Flow Rate FiO2 08/28/17 21:01 38.0 124 20 119/68 98 Room Air 08/28/17 20:26 38.0 120 122/64 94 Room Air 08/28/17 18:37 39.0 132 20 124/74 98 Room Air Physical Exam GENERAL: Sitting up in bed, ambulates without difficulty with a nonproductive cough EYE EXAM: normal conjunctiva. EARS: TMs clear bilaterally. OROPHARYNX: no exudate, no erythema, lips, buccal mucosa, and tongue normal and mucous membranes are moist NECK: supple, no nuchal rigidity, no adenopathy, non-tender LUNGS: Clear to auscultation. Normal chest wall mechanics HEART: tachycardic, no murmurs, S1 normal and S2 normal ABDOMEN: abdomen soft, non-tender, normo-active bowel sounds, no masses, no rebound or guarding. BACK: Back is symmetrical on inspection and there is no deformity, no midline tenderness, no CVA tenderness. SKIN: no rashes and no bruising UPPER EXTREMITIES: upper extremities are grossly normal. LOWER EXTREMITIES: No pitting edema. NEURO EXAM: Normal sensorium, cranial nerves II-XII grossly intact, normal speech, no gross weakness of arms, no gross weakness of legs. Gross sensation intact. Medical Decision & Procedures ER Provider Diagnostic Interpretation: Radiology results as stated below per my review and the radiologist's interpretation: SINGLE VIEW CHEST CLINICAL HISTORY: Cough. FINDINGS: An AP, portable, upright chest radiograph is obtained. No prior studies are available for comparison at the time of dictation. The examination is degraded by portable technique and patient rotation. The cardiomediastinal silhouette is unremarkable. The lungs and pleural spaces are clear. No pneumothorax is seen. The bony thorax is grossly intact. IMPRESSION: No active disease in the chest. Electronically signed by: Antwan Pan M.D. 08/28/2017 8:12 PM Dictated Date/Time: 08/28/2017 8:12 PM Laboratory Results 08/28/17 19:15 Red Blood Count 5.17, Mean Corpuscular Volume 93.2, Mean Corpuscular Hemoglobin 31.3, Mean Corpuscular Hemoglobin Concent 33.6, Mean Platelet Volume 9.4, Neutrophils (%) (Auto) 84.7, Lymphocytes (%) (Auto) 4.2, Monocytes (%) (Auto) 7.8, Eosinophils (%) (Auto) 1.8, Basophils (%) (Auto) 0.3, Neutrophils # (Auto) 11.02, Lymphocytes # (Auto) 0.55, Monocytes # (Auto) 1.02, Eosinophils # (Auto) 0.24, Basophils # (Auto) 0.04 08/28/17 19:15 Test 08/28/17 19:15 08/28/17 19:16 White Blood Count 13.02 K/uL (4.8-10.8) Red Blood Count 5.17 M/uL (4.7-6.1) Hemoglobin 16.2 g/dL (14.0-18.0) Hematocrit 48.2 % (42-52) Mean Corpuscular Volume 93.2 fL (80-100) Mean Corpuscular Hemoglobin 31.3 pg (25-34) Mean Corpuscular Hemoglobin Concent 33.6 g/dl (32-36) Platelet Count 241 K/uL (130-400) Mean Platelet Volume 9.4 fL (7.4-10.4) Neutrophils (%) (Auto) 84.7 % Lymphocytes (%) (Auto) 4.2 % Monocytes (%) (Auto) 7.8 % Eosinophils (%) (Auto) 1.8 % Basophils (%) (Auto) 0.3 % Neutrophils # (Auto) 11.02 K/uL (1.4-6.5) Lymphocytes # (Auto) 0.55 K/uL (1.2-3.4) Monocytes # (Auto) 1.02 K/uL (0.11-0.59) Eosinophils # (Auto) 0.24 K/uL (0-0.5) Basophils # (Auto) 0.04 K/uL (0-0.2) RDW Standard Deviation 44.9 fL (36.4-46.3) RDW Coefficient of Variation 13.1 % (11.5-14.5) Immature Granulocyte % (Auto) 1.2 % Immature Granulocyte # (Auto) 0.15 K/uL (0.00-0.02) Nucleated RBC Absolute Count (auto) 0.06 K/uL (0-0) Nucleated Red Blood Cells % 0.4 % Anion Gap 8.0 mmol/L (3-11) Est Creatinine Clear Calc Drug Dose 83.4 ml/min Estimated GFR () 92.8 Estimated GFR (Non- 80.1 BUN/Creatinine Ratio 18.1 (10-20) Calcium Level 8.6 mg/dl (8.5-10.1) Chemistry Specimen Hemolysis Influenza Type A Antigen POS for Influ A (NEG) Influenza Type B Antigen Neg for Influ B (NEG) Laboratory results per my review. Medications Administered Medications (Trade) Dose Ordered Sig/Katey Route Start Time Stop Time Status Last Admin Dose Admin Sodium Chloride 2,000 ml @ 999 mls/hr Q2H1M STAT IV 1/1/18 18:47 08/28/17 20:47 DC 08/28/17 19:28 999 MLS/HR Acetaminophen (Tylenol Tab) 1,000 mg NOW STAT PO 08/28/17 18:47 08/28/17 18:49 DC 08/28/17 19:28 1,000 MG Oseltamivir Phosphate (Tamiflu Cap) 75 mg NOW STAT PO 08/28/17 20:23 08/28/17 20:24 DC 08/28/17 21:00 75 MG ED Course ED COURSE: Vital signs were reviewed and showed tachycardic. The patients medical record was reviewed The above diagnostic studies were performed and reviewed. ED treatments and interventions as stated above. 1840: The patient was evaluated in room A04B. A complete history and physical examination was performed. 1846: Ordered Tylenol Tab 1000 mg PO, Sodium Chloride 2000 ml @ 999 mls/hr IV. 2023: Upon reevaluation, the patient is feeling better. I discussed the findings and the treatment plan with the patient. He verbalizes agreement and understanding. The patient was discharged home. Medical Decision Differential diagnosis: Etiologies such as viral syndrome, otitis, pharyngitis, pneumonia, influenza, meningitis, urinary tract infection, sepsis, bacteremia, as well as others were entertained. Patient is a 31-year-old male who presents to ER for cough, runny nose and sore throat which has been worsening over the past 24 hours. Patient is not to take any Tylenol. He is febrile and tachycardic. CBC shows a mild leukocytosis. BMP was unremarkable. Influenza A was positive. Patient was given 2 L normal saline. He was given Tylenol. Heart rate did trend down. His fever improved. He was feeling slightly better. He was given Tamiflu. He has no other comorbidities. He was discharged follow-up with PCP as an outpatient. Discussed with Pt concerning signs and symptoms to watch out for. Pt was instructed to follow up with their PCP and discussed with the patient their option to return to the ED at anytime for persistent or worsening symptoms. The appropriate anticipatory guidance and out-patient management, including indications for return to the emergency department, were explained at length to the patient and understood. Medication Reconcilliation Current Medication List: was personally reviewed by me Blood Pressure Screening Patient's blood pressure: Normal blood pressure Impression Primary Impression: Influenza A Scribe Attestation The scribe's documentation has been prepared under my direction and personally reviewed by me in its entirety. I confirm that the note above accurately reflects all work, treatment, procedures, and medical decision making performed by me. Departure Information Dispostion Home / Self-Care Prescriptions Oseltamivir (Tamiflu) 75 Mg Cap 75 MG PO BID, #10 CAP Prov: HodgsonOneil, DO 08/28/17 Referrals No Doctor, Assigned (PCP) Forms HOME CARE DOCUMENTATION FORM, IMPORTANT VISIT INFORMATION Patient Instructions My [facility], Oseltamivir capsules Additional Instructions Please follow up with your primary care doctor with in the next 24 hours. Any worsening of your symptoms, please return to the ED immediately. This includes any fevers greater than 100.4, worsening pain, chest pain, shortness breath, persistent nausea, vomiting, unable to eat or drink, or any other concerning signs or symptoms from your standpoint. Please take Tylenol or Motrin as needed for fevers and muscle aches. Please take Tamiflu as prescribed.
== END 2017-08-28 21:05 | disposition home or self-care (01) ==
LOC: C.EDB 18:35 → C.EDA 21:05
DX: J10.1 Influenza due to other identified influenza virus with other respiratory manifestations (principal); R00.0 Tachycardia, unspecified

== ENCOUNTER 2017-09-25 22:13 | Emergency (ER) | payer SELFPAY ==
[~2017-09-25] VITALS: Ht 170.2 cm; Wt 77.7 kg
[~2017-09-25 22:13] MED LIST changes: -CLC100 PO; -HYDR-5688 PO; +OSEL75CA12 PO
[2017-09-25 22:43] VITALS: TEMP 36.5; Ht 170.2 cm; Wt 77.7 kg
[2017-09-26 00:24] VITALS: BP 123/77; PULSE 93; O2SAT 97
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
--- NOTE | 2017-09-26 07:20 | DIAGNOSTIC IMAGING REPORT ---
RIGHT WRIST 5 VIEWS HISTORY: Right wrist pain. COMPARISON: None. FINDINGS: There is no fracture or dislocation. Soft tissues are unremarkable. No radiopaque foreign bodies. IMPRESSION: No fractures. Electronically signed by: Carmelo Bhat M.D. 09/26/2017 7:18 AM Dictated Date/Time: 09/26/2017 7:18 AM
== END 2017-09-26 00:45 | disposition home or self-care (01) ==
LOC: C.EDB 22:13 → C.EDA 09-26 00:45
DX: M25.531 Pain in right wrist (principal); Z87.828 Personal history of other (healed) physical injury and trauma